=== PATIENT | male | born 1965 | race Caucasian/White ===

== ENCOUNTER → 2022-09-08 | Outpatient (CLI) | payer BC | LOC: M PLAIMG 10:51 | PROVIDERS: ATTEND Physician Assistant | DX: M50.322 Other cervical disc degeneration at C5-C6 level (principal) ==

== ENCOUNTER → 2022-10-09 | Outpatient (CLI) | payer BC ==
[2022-10-09 10:17] LABS: PLATELET COUNT, AUTOMATED 235 10^3/uL (150-450)
[2022-10-09 10:29] LABS: INR 0.89; PROTHROMBIN TIME 12.2 SECONDS (12.5-14.5)
[2022-10-09 10:30] LABS: PARTIAL THROMBOPLASTIN TIME 28.6 SECONDS (24.8-34.2)
[2022-10-09 10:47] LABS: COLLAGEN EPINEPHRINE 235 SECONDS (74-162)
[2022-10-09 11:15] LABS: COLLAGEN ADP 152 SECONDS (56-103)
== END ==
LOC: M LAB 09:02
PROVIDERS: ATTEND Physician Assistant
DX: Z01.818 Encounter for other preprocedural examination (principal)

== ENCOUNTER → 2022-10-31 | Outpatient (CLI) | payer BC ==
[2022-10-31 08:27] LABS: COLLAGEN EPINEPHRINE 178 SECONDS (74-162)
[2022-10-31 08:56] LABS: COLLAGEN ADP 146 SECONDS (56-103)
== END ==
LOC: M LAB 07:11
PROVIDERS: ATTEND Physical Medicine & Rehabilitation
DX: Z01.812 Encounter for preprocedural laboratory examination (principal)

== ENCOUNTER → 2022-11-22 | Outpatient (CLI) | payer BC ==
[2022-11-22 13:23] LABS: HEMATOCRIT 38.1 % (42.0-52.0); HEMOGLOBIN 13.2 g/dl (13.5-17.5); MEAN CORPUSCULAR HEMOGLOBIN 30.1 pg (27.0-33.0); MEAN CORPUSCULAR HGB CONC 34.6 g/dl (32.0-36.5); MEAN CORPUSCULAR VOLUME 86.8 fl (80.0-96.0); PLATELET COUNT, AUTOMATED 257 10^3/uL (150-450); RED BLOOD COUNT 4.39 10^6/uL (4.30-6.10); WHITE BLOOD COUNT 6.7 10^3/uL (4.0-10.0)
[2022-11-22 13:37] LABS: INR 0.86; PROTHROMBIN TIME 11.9 SECONDS (12.5-14.5)
[2022-11-22 13:38] LABS: PARTIAL THROMBOPLASTIN TIME 28.9 SECONDS (24.8-34.2)
[2022-11-22 14:09] LABS: COLLAGEN EPINEPHRINE 195 SECONDS (74-162)
[2022-11-22 14:49] LABS: COLLAGEN ADP 130 SECONDS (56-103)
[2022-11-25 05:07] LABS: F8 ACTIVITY FOR F8 PANEL 68 % (56-140); F8 ACTIVITY vWB FOR F8 PANEL 45 % (50-200); F8 ANTIGEN FOR F8 PANEL 77 % (50-200)
== END ==
LOC: M LAB 12:03
PROVIDERS: ATTEND Internal Medicine Hematology
DX: D69.1 Qualitative platelet defects (principal)